=== PATIENT | male | born 1955 | race Caucasian/White ===

== ENCOUNTER → 2016-10-03 | Outpatient (CLI) | payer OTHER | LOC: CIMAGING 07:30 | PROVIDERS: ATTEND Physician Assistant Medical | DX: R10.11 Right upper quadrant pain (principal) | CPT/HCPCS: 76705-PO ==

== ENCOUNTER 2017-02-20 05:40 | Inpatient (IN) | payer OTHER ==
[~2017-02-20 05:40] MED LIST: ACETAMINOPHEN 500 MG TAB PO ONE; GABAPENTIN 300 MG CAP PO ONE; ceFAZolin 2 GM/DEXTROSE 100 ML IV ONE; morphINE PF 5 MG/10 ML INJ IT ONE; morphINE SR 15 MG TAB PO ONE
[2017-02-20] MEDS ORDERED: morphINE PF 5 MG/10 ML INJ IT ONE (06:00)
[2017-02-20] MEDS ORDERED: ACETAMINOPHEN 500 MG TAB PO ONE (06:00)
[2017-02-20] MEDS ORDERED: GABAPENTIN 300 MG CAP PO ONE (06:00)
[2017-02-20] MEDS ORDERED: ceFAZolin 2 GM/DEXTROSE 100 ML IV ONE (06:00)
[2017-02-20] MEDS ORDERED: morphINE SR 15 MG TAB PO ONE (06:00)
[2017-02-20] MEDS ORDERED: LIDOCAINE 1% 2 ML INJ ID PRN (06:14)
[2017-02-20] MEDS ORDERED: LR 1,000 ML IV ONE (06:14)
[2017-02-20] MEDS ORDERED: REMIFENTANIL HCL 1 MG VIAL ONE ×4 (06:38→11:02)
[2017-02-20] MEDS ORDERED: PROPOFOL/EMULSION 500 MG/50 ML BOTTLE IV ONE ×4 (06:38→11:01)
[2017-02-20] MEDS ORDERED: fentaNYL 100 MCG/2 ML INJ ONE (06:38)
[2017-02-20] MEDS ORDERED: PROPOFOL 200 MG/20 ML VIAL ONE (06:38)
[2017-02-20] MEDS ORDERED: SUCCINYLCHOLINE CHLORIDE*ANESTHESIA ONLY*200 MG/10 ML SYR IVP ONE (06:39)
[2017-02-20] MEDS ORDERED: BUPIVACAINE 0.25% 30 ML SDV ONE (06:48)
[2017-02-20] MEDS ORDERED: THROMBIN (BOVINE) 20,000 UNIT VIAL TP ONE (06:48)
[2017-02-20] MEDS ORDERED: CHLORHEXIDINE GLUC HIBICLENS 118 ML BTL TP ONE (06:48)
[2017-02-20] MEDS ORDERED: BACITRACIN 50,000 UNITS/10 ML SYR IRR ONE (06:49)
--- NOTE | 2017-02-20 06:59 | PDHPUP ---
History & Physical Update H&P update statement: This history and physical update is based on an assessment of the patient which was completed after admission or registration (within 24 hours), but prior to the surgery/procedure. H&P update: H&P reviewed & patient examined, no change in patient's condition since H&P completed (Consents signed and site marked.)
[2017-02-20] MEDS ORDERED: MIDAZOLAM 2 MG/2 ML VIAL IVP ONE (07:00)
--- NOTE | 2017-02-20 07:00 | PDANEPAE ---
ANE History of Present Illness 61 year old male with PMHx SARAH w/ CPAP, lumbar stenosis presents for L4/L5 TLIF. ANE Past Medical History - Cardiovascular History Hx Hypertension: No Hx Arrhythmias: No Hx Chest Pain: No Hx Coronary Artery / Peripheral Vascular Disease: No Hx CHF / Valvular Disease: No Hx Palpitations: No - Pulmonary History Hx COPD: No Hx Asthma/Reactive Airway Disease: No Hx Recent Upper Respiratory Infection: No Hx Oxygen in Use at Home: No Hx Sleep Apnea: Yes Sleep Apnea Screening Result - Last Documented: Positive Pulmonary History Comment: SARAH W/CPAP-since 2003 - Neurologic History Hx Cerebrovascular Accident: No Hx Seizures: No Hx Dementia: No - Endocrine History Hx Diabetes: No Hypothyroid: No Hyperthyroid: No Obesity: no - Renal History Hx Renal Disorders: No - Liver History Hx Hepatic Disorders: No - Neurological & Psychiatric Hx Hx Neurological and Psychiatric Disorders: Yes Neurological / Psychiatric History Comment: lumbar stenosis, spondylolisthesis. leg weakness. depression-weaning off Viibryd - Cancer History Hx Cancer: Yes Cancer History Comment: basal cell skin - Congenital Disorder History Hx Congenital Disorders: No - GI History GERD: no Hx Gastrointestinal Disorders: No - Other Health History Other Health History: gout - Chronic Pain History Chronic Pain: Yes (back) - Surgical History Prior Surgeries: lumbar decompression -2003. knee surgery x2. appy. tonsillectomy ANE Review of Systems Review of systems is: negative Review of Systems: - Exercise capacity Exercise capacity: >=4 METS METS (RN): 4 METS ANE Patient History - Allergies Allergies/Adverse Reactions: Iodinated Contrast- Oral and IV Dye Allergy (Verified 01/31/17 14:28) Hives - Home Medications Home medications: home medication list seen and reviewed Home Medications: Allopurinol [Allopurinol 300 MG (RX)] 300 mg PO DAILY 01/27/17 [Last Taken 02/19 13:00] Aspirin [Aspirin 81mg (*)] 81 mg PO DAILY 01/27/17 [Last Taken 02/13/17] Cholecalciferol Vit D3 [Vitamin D3 (*)] 1,000 units PO DAILY 01/27/17 [Last Taken 02/15/17] RX: Herbals/Supplements -Info Only 1 ea PO DAILY 01/27/17 [Last Taken 02/15/17] Viibryd 10 mg PO 01/31/17 [Last Taken 02/19/17 13:00] - NPO status NPO Status: no food or drink >8 hours - Anes Hx Anes Hx: no prior problems - Smoking Hx Smoking Status: Never smoked Marijuana use: No - Family Anes Hx Family Anes Hx: neg - N/A ANE Labs/Vital Signs - Vital Signs Vital Signs: reviewed preoperatively; see RN documention for details Height: 200.66 cm Weight: 117.934 kg ANE Physical Exam - Airway Neck exam: decreased ROM (Limited extension) Mallampati Score: Class 2 Mouth exam: poor dentition (Full upper permanent bridge) - Pulmonary Pulmonary: no respiratory distress - Cardiovascular Cardiovascular: regular rate and rhythym - ASA Status ASA Status: II ANE Anesthesia Plan Anesthesia Plan: general endotracheal anesthesia Lines/Monitors: arterial line (Possible arterial line) Total IV Anesthesia: No
[2017-02-20] MEDS ORDERED: LIDOCAINE 2% 5 ML SDV ONE (07:13)
[2017-02-20] MEDS ORDERED: CITRATE DEXTROSE SOLN 500 ML BAG ONE ×2 (07:19→10:58)
[2017-02-20] MEDS ORDERED: ROCURONIUM 50 MG/5 ML VIAL ONE (07:21)
[2017-02-20] MEDS ORDERED: GENTAMICIN SULFATE 80 MG/2 ML VIAL ONE ×2 (07:57→09:41)
[2017-02-20] MEDS ORDERED: OXYCODONE/APAP 5/325 TAB PO PRN (09:50)
[2017-02-20] MEDS ORDERED: NALOXONE HCL 0.4 MG/ML INJ IVP PRN (09:50)
[2017-02-20] MEDS ORDERED: LR 500 ML IV PRN (09:50)
[2017-02-20] MEDS ORDERED: fentaNYL 100 MCG/2 ML INJ IVP PRN (09:50)
[2017-02-20] MEDS ORDERED: HYDROmorphONE/DILAUDID 1 MG/ML INJ IVP PRN (09:50)
[2017-02-20] MEDS ORDERED: ONDANSETRON 4 MG/2 ML VIAL IVP PRN ×2 (09:50→10:17)
[2017-02-20] MEDS ORDERED: HYDROmorphONE/DILAUDID 2 MG/ML INJ ONE (09:56)
[2017-02-20] MEDS ORDERED: ONDANSETRON DISINTEGRATING 4 MG TAB PO PRN (10:17)
[2017-02-20] MEDS ORDERED: MAGNESIUM HYDROXIDE 30 ML UDCUP PO PRN (10:17)
[2017-02-20] MEDS ORDERED: POLYETHYLENE GLYCOL 3350 17 GM PKT PO PRN (10:17)
[2017-02-20] MEDS ORDERED: LACTULOSE 20 GM/30 ML UDCUP PO PRN (10:17)
[2017-02-20] MEDS ORDERED: diphenhydrAMINE 25 MG CAP PO PRN (10:17)
[2017-02-20] MEDS ORDERED: BISACODYL 10 MG SUPP PR PRN (10:17)
[2017-02-20] MEDS ORDERED: SUGAMMADEX SODIUM 200 MG/2 ML VIAL IVP ONE (11:48)
[2017-02-20] MEDS ORDERED: ONDANSETRON 4 MG/2 ML VIAL ONE (11:48)
--- NOTE | 2017-02-20 13:31 | POSTOPPROG ---
Post Op Note Date of Operation: 02/20/17 Surgeon: Tobi Mcfarlane Cheese Production Supervisor: Oh Sam PA-C Anesthesiologist: Geo Anesthesia: GET(General Endotracheal) Pre-op Diagnosis: Lumbar spondylolisthesis Post-op Diagnosis: same Indication: L4-S1 TLIF and posterior fusion Procedure: L4-S1 TLIF and posterior fusion with L5-S1 munoz laminectomy Findings: Please see dictation Inf/Abcess present in the surg proc area at time of surgery?: No Depth: Organ Space EBL: 100-500 Complications: none Drains: Sander Baires Specimen(s): none PA Addendum - Addendum .: S: Pt resting in bed, c/o low back pain O: AAOx3 NAD VSS MAEx4 Motor 5/5 BUE/BLE Incision cdi JPx1 A: 61 yo M s/p L4-S1 TLIF and posterior fusion with L5-S1 munoz laminectomy Plan: PT/OT Pain management Brace when OOB TEDs, SCDs, lovenox POD#1 Dressing - new silver dressing leave in place Call NS with any issues Post op xrays pending D/w Dr Mcfarlane
--- NOTE | 2017-02-20 13:58 | POSTANESTH ---
Post Anesthetic Evaluation Cardiovascular Status: Normal, Stable, Similar to Pre-Op Cond Respiratory Status: Normal, Stable, Similar to Pre-op Cond. Level of Consciousness/Mental Status: Can Participate in Eval Pain Control: Adequate, Prn Tx Ordered Nausea/Vomiting Control: Adequate, Prn Tx Ordered Complications Possibly Related to Anesthesia: None Noted
[2017-02-20] MEDS: ACETAMINOPHEN 500 MG TAB PO SCH ×2 (14:38→21:12)
[2017-02-20] MEDS: oxyCODONE IR 5 MG TAB PO PRN ×3 (14:38→23:55)
[2017-02-20] MEDS: METHOCARBAMOL 750 MG TAB PO PRN (14:39)
--- NOTE | 2017-02-20 14:51 | GOP ---
[f rep st] OPERATIVE REPORT DATE OF OPERATION: 02/20/2017 SURGEON: Tobi Mcfralane MD EDGE TRIMMER MECHANIC: Yany Sam PA-C. ANESTHESIA: General. PREOPERATIVE DIAGNOSIS: 1. Lumbar scoliosis L4-L5. 2. Lateral recess foraminal stenosis on the right, L4-L5, L5-S1. 3. Bilateral pars defects, L5-S1, with spondylolysis. 4. Low back pain and left lower extremity radiculopathy. 5. Treatment refractory to nonoperative intervention. POSTOPERATIVE DIAGNOSIS: 1. Lumbar scoliosis L4-L5. 2. Lateral recess foraminal stenosis on the right, L4-L5, L5-S1. 3. Bilateral pars defects, L5-S1, with spondylolysis. 4. Low back pain and left lower extremity radiculopathy. 5. Treatment refractory to nonoperative intervention. PROCEDURE PERFORMED: 1. Posterior arthrodesis with approach to L4, L5, S1. 2. Posterolateral fusion with bilateral pedicle screw placement at L4, L5, and S1 from the GMIra 4.75 system. 3. Posterolateral fusion on the left between L4 and S1. 4. Montilla laminectomy with bilateral partial resections L5-S1. 5. Right-sided L5-S1 hemilaminotomy with mesial facetectomy, foraminotomy, nerve root decompression. 6. Right-sided L4-L5 transforaminal lumbar interbody fusion with a 7 x 28 mm titanium PEEK elevate cage filled with morselized autograft and allograft. 7. Right-sided L5-S1 transforaminal lumbar interbody fusion with a 7 x 28 mm titanium PEEK elevate cage filled with morselized autograft and allograft. 8. Use of intraoperative 3D Stealth navigation. 9. Use of intraoperative fluoroscopy, less than 1 hour physician time. 10. Use of neuromonitoring. 11. Use of operating microscope. 12. Injection of preservative-free intrathecal narcotics. FINDINGS: per imaging with very hard bone and severe nerve compression SPECIMENS: None. ESTIMATED BLOOD LOSS: 200 mL. COMPLICATIONS: None. INDICATIONS: The patient is a 61-year-old gentleman who presented with lower extremity radiculopathy on the right with low back pain. He had scoliosis at L4 -5 with severe lateral recess foraminal stenosis on the right L4-5, L5-S1. He had a prior history of a decompression left side, L4-5. After failing nonoperative interventions, after discussion of the risks, benefits, and treatment alternatives, we decided to proceed forth with surgery as described above. DESCRIPTION OF PROCEDURE: Patient brought to the operating theater, underwent general endotracheal anesthesia without complications. He had knee-high COBY hose and the appropriate lines placed by Anesthesia. He was then flipped prone onto the Sander table, and all bony prominences inspected and padded. The lower lumbar region, including his prior incision, was identified and prepped and draped in usual sterile surgical fashion. A time-out was completed per protocol, and the patient received antibiotics within 1 hour of incision. Using lateral fluoroscopy and a spinal needle, we picked our entry point to the L4 through S1 levels. This was marked in the midline and incorporated his prior lumbar incision. The incision was infiltrated with Marcaine with epinephrine and taken down initially with the scalpel blade. Using the monopolar, the incision was taken down the midline through the lumbodorsal fascia, and a subperiosteal dissection carried out bilaterally to the transverse processes bilaterally at L4, L5, and S1. Deep retractors were placed to maintain our exposure. Care was taken to avoid the prior left-sided L4-5 hemilaminotomy scar tissue. At this point, we attached the 3D Stealth navigation clamp to the spinous process of L5 and completed a 3D Stealth navigation spin. Using 3D Stealth navigation, we then placed the check pilot holes for the bilateral pedicle screws in the L4, L5, and S1 levels. All holes were manually palpated with no evidence of any cortical breaches. We then tapped and placed 6.5 x 50 mm screw on the left at L4, 6.5 x 55 mm screw on the right at L4, bilaterally at L5, and the right S1, and a 6.5 x 50 mm screw on the left at S1. Another 3D navigation spin demonstrated the right L4 screw was somewhat lateral. The patient has noted extremely hard bone, and we, again, removed this screw and changed the trajectory to a more medial approach. We had a very difficult time with the patient's bone quality and trying to keep the screw trajectory medially. Another 3D Stealth navigation spin demonstrated that the screw was in a much better place along the lateral edge of the pedicle and vertebral body which I felt was good and did not opt to change this. At this point, the microscope was brought into the field to assist with microscopic dissection and to maintain illumination and magnification. Using a combination of the bur tip on the drill and Kerrison punches, we completed a right-sided L4-5 hemilaminotomy with mesial facetectomy and foraminotomy. We distracted the interspace and completed right-sided L4-5 diskectomy. We prepared the cartilaginous endplates and measured interbody space. We then placed a 7 x 20 mm titanium PEEK elevate cage filled with morselized autograft and allograft into the L4-5 disk space. We packed additional morcellized autograft in the disk space for the interbody fusion and let down the distraction. We then moved down to L5-S1 where we completed a Montilla laminectomy with resection of the lamina and bilateral pars and passed the bone off the field. We resected the remainder of the pars on the right side L5-S1 and completed a right-sided L5-S1 diskectomy. We prepared the cartilaginous endplates and measured interbody space. We placed a 7 x 28 mm titanium PEEK elevate cage filled with morselized autograft and allograft anteriorly and toward the midline. We packed additional morcellized autograft into the disc space for interbody fusion. We let down the distraction and decorticated the bone on the left side between L4 and S1. We injected preservative-free intrathecal narcotics and irrigated them copiously with bacitracin irrigation. We placed 2 lordotic rods into the heads of the screws between L4 and S1 and secured them down with cap screws, which were tightened per the carpenter helper maintenance's setting. We injected preservative intrathecal narcotics. We placed morselized autograft and allograft on the left side between L4 and S1 for the posterolateral fusion. A drain was left in the subfascial space, and the wound closed in multiple layers using Vicryl sutures for the deep layers and Dermabond for the skin. The patient's wounds were dressed sterilely. He was then flipped supine onto the transport cart where he was awakened, extubated , taken to the recovery room in stable condition. There were no complications and no noted changes on neuromonitoring throughout the procedure. /[id number]/MODL MTDD
[2017-02-20] MEDS: ceFAZolin 2 GM/DEXTROSE 100 ML IV SCH ×2 (17:10→23:54)
[2017-02-20] MEDS: FAMOTIDINE 20 MG TAB PO SCH (21:12)
[2017-02-20] MEDS: SENNOSIDES/DOCUSATE SODIUM TAB PO SCH (21:13)
[2017-02-21] MEDS: METHOCARBAMOL 750 MG TAB PO PRN ×2 (04:10→20:38)
[2017-02-21] MEDS: ACETAMINOPHEN 500 MG TAB PO SCH ×3 (06:30→23:42)
[2017-02-21] MEDS: oxyCODONE IR 5 MG TAB PO PRN (06:30)
--- NOTE | 2017-02-21 07:18 | NEUSURGPN ---
Date of Surgery: 02/20/17 Post Op Day: 1 Assessment/Plan: A: 61 yo M s/p L4-S1 TLIF and posterior fusion with L5-S1 munoz laminectomy Plan: PT/OT Pain management Brace when OOB TEDs, SCDs, lovenox POD#1 Dressing - new silver dressing leave in place Call NS with any issues Post op xrays later this am continue JPx1 until Friday likely home friday if doing well D/w Dr Mcfarlane Subjective: c/o numbness in lateral thighs b/l post op. Also having some torso itching that seems better once he removed the hospital gown. Objective: O: AAOx3 NAD VSS MAEx4 Motor 5/5 BUE/BLE except 4+/5 foot eversion on right compared to left. Incision cdi, dressing in place JPx1 175 out overnight - Physician Discussed Patient with : Mae[facility] Neurosurgery Physical Exam - Vitals, I&O, Labs I and O 02/20/17 02/21/17 02/22/17 05:59 05:59 05:59 Intake Total 4056 Output Total 4725 Balance -669 Weight 117.934 kg Intake: Oral (ml) 1506 IV Intake (ml) 2450 IV Infused (ml) 100 ceFAZolin 2 GM/DEXTROSE 100 100 ml @ 200 mls/hr IV Q8H ILA Rx#:[id number] Output: Urine (ml) 4350 Catheter 4350 Estimated Blood Loss (ml) 200 YOJANA Drain Output (ml) 175 #1 Left Posterior Back 175 Other: Number of Voids Catheter 1 Vital Signs Temp Pulse Resp BP Pulse Ox 36.9 C 80 2 L 114/63 98 02/21/17 04:00 02/21/17 04:00 02/21/17 04:00 02/21/17 04:00 02/21/17 04:00 ICD10 Worksheet Patient Problems: Problems Problem Status Onset Spondylosis Acute - ICD10 Problem Qualifiers (1) Spondylosis Qualifiers: Spinal region: lumbar Spinal osteoarthritis complication: with radiculopathy Qualified Code(s): M47.26 - Other spondylosis with radiculopathy , lumbar region
[2017-02-21] MEDS ORDERED: VILAZODONE HCL 20 MG PO SCH (09:00)
[2017-02-21] MEDS: ALLOPURINOL 300 MG TAB PO SCH (09:07)
[2017-02-21] MEDS: (Vilazodone Hcl [Viibryd] 20 MG) PO SCH (09:08)
[2017-02-21] MEDS: SENNOSIDES/DOCUSATE SODIUM TAB PO SCH ×2 (09:14→20:39)
[2017-02-21] MEDS: FAMOTIDINE 20 MG TAB PO SCH ×2 (09:15→20:39)
[2017-02-21] MEDS: CHOLECALCIFEROL VIT D3 1,000 UNITS TAB PO SCH (09:15)
[2017-02-21] MEDS: HYDROCODONE/APAP 10/325 TAB PO PRN ×2 (14:05→18:55)
[2017-02-21 14:41] LABS: GLUCOSE 107 mg/dL (70-100)
[2017-02-21] MEDS: ENOXAPARIN 40 MG/0.4 ML SYR SC SCH (18:52)
[2017-02-22 04:20] VITALS: BP 122/65; PULSE 85; RESP 16; TEMP 98.1; O2SAT 97
[2017-02-22] MEDS: ACETAMINOPHEN 500 MG TAB PO SCH (04:58)
--- NOTE | 2017-02-22 07:05 | SOAPPROG ---
TATIANA Progress Note Assessment/Plan: Assessment: POD#2 s/p redo L4-5, L5-S1 decompression/fusion Plan: -doing well -wants to d/c home, pain well controlled -d/c drain, 175 output total -lumbar xrays show good alignment and intact hardware -followup in clinic in 2 weeks 02/22/17 07:02 Subjective: no complaints Objective: Vital Signs Temp Pulse Resp BP Pulse Ox 36.7 C 85 16 122/65 H 97 02/22/17 04:00 02/22/17 04:00 02/22/17 04:00 02/22/17 04:00 02/22/17 04:00 Laboratory Results 02/21/17 13:50 02/21/17 02/22/17 02/23/17 05:59 05:59 05:59 Intake Total 4056 500 Output Total 4725 291 Balance -669 209 AAOx3, full strength/sensation, dressing c/d/i - Pending Discharge Pending Discharge Within 24 Hours: Yes Pending Discharge Date: 02/23/17 Pending Discharge Time: 11:00 ICD10 Worksheet Patient Problems: Problems Problem Status Onset Spondylosis Acute
[2017-02-22] MEDS: ALLOPURINOL 300 MG TAB PO SCH (08:25)
[2017-02-22] MEDS: CHOLECALCIFEROL VIT D3 1,000 UNITS TAB PO SCH (08:25)
[2017-02-22] MEDS: HYDROCODONE/APAP 10/325 TAB PO PRN (08:30)
[2017-02-22] MEDS: FAMOTIDINE 20 MG TAB PO SCH (08:31)
[2017-02-22] MEDS: SENNOSIDES/DOCUSATE SODIUM TAB PO SCH (08:31)
[2017-02-22] MEDS: ENOXAPARIN 40 MG/0.4 ML SYR SC SCH (08:32)
[2017-02-22] MEDS: (Vilazodone Hcl [Viibryd] 20 MG) PO SCH (08:40)
--- NOTE | 2017-02-23 17:06 | ASDISCHSUM ---
Discharge Information Plan Status:Home with No Needs Medically Cleared to Leave:02/22/2017 Discharge Date:02/22/2017 09:58 AM CM D/C Disposition:Home, Routine, Self-Care ADT D/C Disposition:Home, Routine, Self-Care Projected Discharge Date:02/22/2017 12:00 AM Transportation at D/C:Family Discharge Delay Reason: Follow-Up Date:02/22/2017 12:00 AM Discharge Slot:1 - 8:01 am - 12:00 noon Final Diagnosis:Re-do L4-5, L5-S1 decompression/fusion Placement Information Patient Contact Information Contact Name:DONNA Relationship:Other Address:[address] [place] [address] Work Phone: [facility]:SELAWIK Alternate Phone: State/Zip Code:[place] [address] Email: Financial Information Financial Class:HMO and PPO Plans Primary Plan Desc:HMO [employer] Primary Plan Number:[id number] Secondary Plan Desc: Secondary Plan Number: Assessment Information [facility] CM Progress Note CM Note CM Note Notes: Pt had planned fusion and lami, PT rec outpatient and OT rec home. No CM needs identified at this time. Anticipate pt will d/c when medically stable. CM available for changes/needs. Date Signed: 02/21/2017 02:54 PM Electronically Signed By:Soco Soler [facility] CM Progress Note CM Note CM Note Notes: Reviewed chart; spoke w/ ARNEL Sotelo. PT rec outpt rehab and use of a front wheeled walker. OT has no f/u recs. Per RN and MD notes, pt to discharge home independently w/ family support and no identified needs. CM avail for any further issues or concerns. Date Signed: 02/22/2017 10:36 AM Electronically Signed By:Piper Dempsey Intervention Information
== END 2017-02-22 09:58 | disposition home or self-care (01) | DRG 458 ==
LOC: F3N 05:40
PROVIDERS: ADMIT Neurological Surgery; ATTEND Neurological Surgery
PROC: 0SG30AJ Fusion of Lumbosacral Joint with Interbody Fusion Device, Posterior Approach, Anterior Column, Open Approach (ICD-10-PCS; principal; 2017-02-20 07:15)
PROC: 0SG00AJ Fusion of Lumbar Vertebral Joint with Interbody Fusion Device, Posterior Approach, Anterior Column, Open Approach (ICD-10-PCS; principal; 2017-02-20 07:15)
PROC: 0QB00ZZ Excision of Lumbar Vertebra, Open Approach (ICD-10-PCS; principal; 2017-02-20 07:15)
PROC: 01NB0ZZ Release Lumbar Nerve, Open Approach (ICD-10-PCS; principal; 2017-02-20 07:15)
DX: M41.26 Other idiopathic scoliosis, lumbar region (principal); M48.06 Spinal stenosis, lumbar region; M43.16 Spondylolisthesis, lumbar region
CPT/HCPCS: 82947-QW; 97116-GP; 97161-GP; 97165-GO; C1713; J0171; J0330; J0690; J1170; J1650; J2250; J2405; J2704; J3010; J7060